=== PATIENT | female | born 1985 | race African-American/Black ===

== ENCOUNTER 2020-05-01 17:58 | Emergency (ER) | payer OTHER ==
[2020-05-01 18:10] VITALS: BP 118/72; PULSE 75; TEMP 97.8; BMI 30.2
[2020-05-01] MEDS ORDERED: HIV POST EXPOSURE PROPHYLAXIS KIT NR ONE (19:27)
[2020-05-01] MEDS ORDERED: HIV POST EXPOSURE PROPHYLAXIS KIT PO ONE (19:41)
[2020-05-01 20:47] LABS: BASO % 0.5 % (0-2.0); EOS % 1.5 % (0-4.5); HEMATOCRIT 36.6 % (32.4-45.2); HEMOGLOBIN 12.2 GM/dL (10.7-15.3); LYMPH % 23.9 % (8-40); MCH 29.6 pg (25.7-33.7); MCHC 33.3 g/dl (32.0-36.0); MEAN PLT VOLUME 7.8 fl (7.5-11.1); MONO % 5.6 % (3.8-10.2); NEUT % 68.5 % (42.8-82.8); PLATELET COUNT 312 K/MM3 (134-434); RBC 4.11 M/mm3 (3.60-5.2); WHITE BLOOD COUNT 9.7 K/mm3 (4.0-10.0)
[2020-05-01 21:02] LABS: POTASSIUM 4.1 mmol/L (3.5-5.1)
[2020-05-01 21:04] LABS: CALCIUM 9.1 mg/dL (8.5-10.1)
[2020-05-01 21:05] LABS: ALBUMIN 3.6 g/dl (3.4-5.0); BLOOD UREA NITROGEN 7.7 mg/dL (7-18)
[2020-05-01 21:08] LABS: CREATININE 0.7 mg/dL (0.55-1.3)
[2020-05-01 21:10] LABS: BILIRUBIN,TOTAL 0.4 mg/dL (0.2-1)
== END 2020-05-01 21:36 | disposition home or self-care (01) ==
LOC: JERFT 18:20
DX: T14.8XXA Other injury of unspecified body region, initial encounter (principal); W46.1XXA Contact with contaminated hypodermic needle, initial encounter
CPT/HCPCS: 36415; 80053; 85025; 99284-25